=== PATIENT | female | born 1945 | race Caucasian/White ===

== ENCOUNTER 2021-10-23 22:34 | Emergency (ER) | payer MEDICARE, OTHER ==
[~2021-10-23] VITALS: Ht 162.6 cm; Wt 63.5 kg
--- NOTE | 2021-10-23 22:54 | NUR ---
PT BIBHUSBAND FROM HOME C/O R SIDED LOWER POSTERIOR HEADACHE RADIATING DOWN TO NECK SINCE 1400. PT A/OX4. TOLERATING R/A WELL WITH NO SOB. PT AMBULATORY
--- NOTE | 2021-10-23 23:15 | NUR ---
20g IV LINE ESTABLISHED AT [facility]. BLOOD DRAWN AND SENT TO LAB
[2021-10-23 23:23] LABS: BASOPHILS % (AUTO) 0.3 % (0.0-2.0); EOSINOPHILS % (AUTO) 4.1 % (0.0-6.0); HEMATOCRIT 39 % (33-45); HEMOGLOBIN 12.9 g/dL (11.5-14.8); LYMPHOCYTES # (AUTO) 2.8 K/uL (0.8-4.8); LYMPHOCYTES % (AUTO) 34.9 % (20.0-44.0); MEAN CORPUSCULAR HGB CONC 33 g/dl (31.0-36.0); MEAN CORPUSCULAR VOLUME 94 fL (82-100); NEUTROPHILS # (AUTO) 3.9 K/uL (1.8-8.9); NEUTROPHILS % (AUTO) 48.7 % (43.0-81.0); PLATELET COUNT (AUTO) 274 K/uL (150-450); RED BLOOD CELL COUNT(AUTO) 4.15 MIL/uL (4.0-5.2)
[2021-10-23 23:31] LABS: CALCIUM, SERUM 8.9 mg/dL (8.5-10.1); CREATININE 0.8 mg/dL (0.6-1.3); POTASSIUM 3.8 mmol/L (3.5-5.1)
[2021-10-23] MEDS ORDERED: CT SWABBABLE VALVE TRANS SET 1 EA INFUS.SET MC ONE (23:42)
[2021-10-23] MEDS ORDERED: IOHEXOL-300 100 ML VIAL IV ONE (23:42)
[2021-10-23] MEDS ORDERED: IV NS 0.9% 250 ML IV ONE (23:43)
--- NOTE | 2021-10-23 23:45 | NUR ---
PT TAKEN TO CT VIA [facility]
--- NOTE | 2021-10-24 00:03 | NUR ---
PT RETURNED FROM [facility]IA [facility]
--- NOTE | 2021-10-24 00:56 | NUR ---
Patient discharged to home in stable condition. Written and verbal after care instructions given. Patient verbalizes understanding of instruction.
[2021-10-24 01:06] VITALS: BP 137/65
== END 2021-10-24 01:07 | disposition home or self-care (01) ==
LOC: ER 22:34
DX: H92.01 Otalgia, right ear (principal); I10 Essential (primary) hypertension; E03.9 Hypothyroidism, unspecified; Z88.0 Allergy status to penicillin; Z88.8 Allergy status to other drugs, medicaments and biological substances
CPT/HCPCS: 36415; 70481; 80048; 85025; 99285; J7050; Q9967

== ENCOUNTER 2025-04-20 18:39 | Emergency (ER) | payer MEDICARE, OTHER ==
[~2025-04-20] VITALS: Ht 149.9 cm; Wt 68.9 kg
[2025-04-20] MEDS ORDERED: KETOROLAC TROMETHAMINE 15 MG/ML VIAL ONE (19:17)
[2025-04-20] MEDS ORDERED: NAPR-1164 PO (19:18)
[2025-04-20] MEDS ORDERED: ACETAMINOPHEN ES 500 MG TABLET ONE (19:18)
[2025-04-20] MEDS: KETOROLAC TROMETHAMINE 15 MG/ML VIAL IM ONE (19:37)
[2025-04-20] MEDS: ACETAMINOPHEN ES 500 MG TABLET PO ONE (19:37)
[2025-04-20 19:44] VITALS: BP 133/78; TEMP 97.2; O2SAT 99
== END 2025-04-20 19:45 | disposition home or self-care (01) ==
LOC: ER 18:45
DX: S29.012A Strain of muscle and tendon of back wall of thorax, initial encounter (principal); M79.10 Myalgia, unspecified site; I10 Essential (primary) hypertension; E03.9 Hypothyroidism, unspecified; Z88.0 Allergy status to penicillin; Z88.1 Allergy status to other antibiotic agents; X58.XXXA Exposure to other specified factors, initial encounter; Y93.89 Activity, other specified; Y92.89 Other specified places as the place of occurrence of the external cause; Y99.8 Other external cause status
CPT/HCPCS: 99283; 96372; J1885